=== PATIENT | male | born 1965 | race African-American/Black ===

== ENCOUNTER 2025-02-10 10:23 | Emergency (ER) | payer MEDICAID ==
[~2025-02-10] VITALS: Ht 190.5 cm; Wt 86.4 kg
[2025-02-10] MEDS ORDERED: POLY119P3 PO (12:23)
[2025-02-10] MEDS ORDERED: HYDR-4062 PO (12:23)
[2025-02-10] MEDS ORDERED: IBUP-1554 PO (12:23)
[2025-02-10 12:30] VITALS: BP 132/87; PULSE 78; RESP 18; TEMP 97.205216; O2SAT 100
[2025-02-10] MEDS: IBUPROFEN 600 MG TABLET PO ONE (12:30)
== END 2025-02-10 13:35 | disposition home or self-care (01) ==
LOC: EMS 10:23
DX: S63.502A Unspecified sprain of left wrist, initial encounter (principal); M19.032 Primary osteoarthritis, left wrist; F12.90 Cannabis use, unspecified, uncomplicated; F17.210 Nicotine dependence, cigarettes, uncomplicated; Z79.899 Other long term (current) drug therapy; Z88.5 Allergy status to narcotic agent; X58.XXXA Exposure to other specified factors, initial encounter; Y93.89 Activity, other specified; Y92.89 Other specified places as the place of occurrence of the external cause; Y99.8 Other external cause status
CPT/HCPCS: 99283